=== PATIENT | female | born 1935 | race Caucasian/White ===

== ENCOUNTER 2021-02-16 18:24 | Inpatient (IN) ==
[2021-02-16] MEDS: NOREPINEPHRINE 8 MG in SODIUM CHLORIDE 0.9% 242 ML IV PRN (19:09)
[2021-02-16] MEDS ORDERED: LACTATED RINGERS 1,000 ML IV ONE (19:11)
[2021-02-16] MEDS ORDERED: ETOMIDATE 20 MG/10 ML VIAL IV STA (19:23)
[2021-02-16] MEDS ORDERED: ROCURONIUM 100 MG/10 ML VIAL IV STA (19:23)
[2021-02-16 19:33] LABS: Basophils % 0.3 % (0.0-0.8); Hematocrit 46.9 VOL% (35.7-47.0); Hemoglobin 15.1 GM/DL (12.0-16.0); Immature Granulocytes % 0.3 %; Immature Granulocytes Absolute 0.03 #; Lymphocytes % 9.6 % (21.3-54.2); Mean Corpuscular HGB Conc 32.2 GM/DL (32-36); Mean Platelet Volume 12.3 FL (9.6-12.0); Neutrophils % 81.8 % (38.7-73.9); Platelet Count 212 T/CUMM (130-400); Red Blood Count 4.99 MC/CUMM (3.8-5.5); Red Cell Distribution Width 13.4 % (9.3-17.3); White Blood Count 10.2 T/CUMM (4-12)
[2021-02-16] MEDS ORDERED: VANCOMYCIN INJ 1,000 MG in SODIUM CHLORIDE 0.9% 250 ML IV STA (19:33)
[2021-02-16] MEDS ORDERED: NOREPINEPHRINE 4 MG/4 ML VIAL IV ONE (19:39)
[2021-02-16] MEDS ORDERED: ETOMIDATE 20 MG/10 ML VIAL IV ONE (19:39)
[2021-02-16] MEDS ORDERED: ROCURONIUM 100 MG/10 ML VIAL IV ONE (19:39)
[2021-02-16 19:47] LABS: Alanine Aminotransferase 29 U/L (13-56); Albumin 2.3 G/DL (3.4-5.0); Alkaline Phosphatase 58 U/L (45-117); Aspartate Amino Transferase 69 U/L (0-37); Blood Urea Nitrogen 64 MG/DL (7-18); Calcium 7.8 MG/DL (8.5-10.1); Carbon Dioxide 15 MMOL/L (21-32); Estimated Glom Filtration Rate 19 ML/MIN; Glucose 141 MG/DL (74-106); Osmolality,Calculated 320.7 MOS/KG (273-304); Potassium 3.9 MMOL/L (3.5-5.1); Sodium 152 MMOL/L (136-145)
[2021-02-16 19:50] LABS: ABG Base Excess -12.4 MMOL/L (-2.5-2.5); ABG Oxygen Saturation 95.5 % (95-100); ABG PCO2 32.3 MM HG (35-48); ABG PH 7.247 (7.35-7.45); ABG PO2 91.8 MM HG (80-95); ABG TCO2 12.4 MMOL/L (23-27)
[2021-02-16 19:53] LABS: Band Neutrophils 26 % (0-10); Lymphocytes 15 % (20-55); Metamyelocytes 7 %; Myelocytes 1 %; Segmented Neutrophils 41 % (50-85); Total Cells Counted 100
[2021-02-16 19:54] LABS: Anisocytosis 1+; Atypical Lymphocytes Few; Burr Cells 2+; Macrocytosis 1+; Microcytosis 1+; Platelet Estimate Normal
[2021-02-16] MEDS ORDERED: ALBUTEROL 2.5 MG/3 ML NEB RESP TX PRN (21:58)
[2021-02-16] MEDS ORDERED: fentaNYL INJ 1,250 MCG in SODIUM CHLORIDE 0.9% 225 ML IV PRN (22:01)
[2021-02-16] MEDS ORDERED: MORPHINE 2 MG/1 ML SYRINGE IV PRN (22:01)
[2021-02-16] MEDS ORDERED: ONDANSETRON 4 MG/2 ML VIAL IV PRN (22:01)
[2021-02-16] MEDS ORDERED: ACETAMINOPHEN 325 MG TABLET PO PRN (22:01)
[2021-02-16] MEDS ORDERED: SODIUM BICARBONATE 50 MEQ/50 ML VIAL IV STA (22:04)
[2021-02-16] MEDS ORDERED: LACTATED RINGERS 1,000 ML IV SCH (22:30)
[2021-02-16] MEDS: PANTOPRAZOLE 40 MG VIAL IV SCH (22:34)
[2021-02-16] MEDS: MEROPENEM 500 MG in SODIUM CHLORIDE 0.9% 100 ML IV SCH (22:44)
[2021-02-16] MEDS: SODIUM BICARB INJ 100 MEQ in DEXTROSE 5% 1,000 ML IV SCH (23:08)
[2021-02-16 23:28] LABS: Bilirubin,Urine Small mg/dL (Negative); Blood, Urine Small mg/dL (Negative); Glucose,Urine (UA) Negative (Negative); Hyaline Casts,Urine 10 /LPF (0-3); Ketones,Urine Negative (Negative); Mucus,Urine Occasional /LPF (Occasional); Nitrite,Urine Negative (Negative); Protein,Urine 100 MG/DL; RBC,Urine 2 /HPF (0-4); Squamous Epithelial Cell,Urine Occasional /HPF (0-10); Urine Appearance CLOUDY (Clear); Urine Color Amber (Yellow); Urine Specific Gravity 1.018 (1.001-1.035)
[2021-02-17] MEDS: MIDAZOLAM 100 MG in SODIUM CHLORIDE 0.9% 80 ML IV PRN ×2 (00:45→20:20)
[2021-02-17] MEDS: ALBUTEROL/IPRATROPIUM 3 ML NEB RESP TX SCH ×4 (00:52→19:05)
[2021-02-17] MEDS ORDERED: NOREPINEPHRINE 4 MG/4 ML VIAL IV ONE ×7 (01:36→20:49)
[2021-02-17] MEDS: NOREPINEPHRINE 8 MG in SODIUM CHLORIDE 0.9% 242 ML IV PRN ×6 (01:40→20:55)
[2021-02-17] MEDS ORDERED: LACTATED RINGERS 1,000 ML IV ONE (02:47)
[2021-02-17 03:25] LABS: ABG Base Excess -3.9 MMOL/L (-2.5-2.5); ABG HCO3 21.2 MMOL/L (20-26); ABG Oxygen Saturation 98.1 % (95-100); ABG PCO2 30.2 MM HG (35-48); ABG PH 7.415 (7.35-7.45); ABG TCO2 16.6 MMOL/L (23-27)
[2021-02-17 04:11] LABS: Basophils # 0.1 10*3/uL (0.0-0.2); Basophils % 0.7 % (0.0-0.8); Hemoglobin 14.1 GM/DL (12.0-16.0); Immature Granulocytes % 0.5 %; Immature Granulocytes Absolute 0.04 #; Lymphocytes # 1.4 10*3/uL (1.4-4.0); Lymphocytes % 15.5 % (21.3-54.2); Mean Corpuscular HGB Conc 32.8 GM/DL (32-36); Mean Corpuscular Volume 93.1 FL (87-102); Mean Platelet Volume 12.5 FL (9.6-12.0); Monocytes % 5.9 % (1.7-12.7); Neutrophils % 77.4 % (38.7-73.9); Platelet Count 200 T/CUMM (130-400); Red Blood Count 4.62 MC/CUMM (3.8-5.5); Red Cell Distribution Width 13.5 % (9.3-17.3); White Blood Count 8.8 T/CUMM (4-12)
[2021-02-17 04:27] LABS: Albumin 1.8 G/DL (3.4-5.0); Bilirubin,Total 0.6 MG/DL (0.20-1.00); Calcium 7.2 MG/DL (8.5-10.1); Osmolality,Calculated 321.9 MOS/KG (273-304); Potassium 3.5 MMOL/L (3.5-5.1); Total Protein 4.1 G/DL (6.4-8.2)
[2021-02-17 04:33] LABS: Band Neutrophils 12 % (0-10); Lymphocytes 22 % (20-55); Myelocytes 1 %; Segmented Neutrophils 63 % (50-85); Total Cells Counted 100
[2021-02-17 04:34] LABS: Microcytosis Slight; Platelet Estimate Adequate
[2021-02-17] MEDS ORDERED: methylPREDNISolone SOD SUC 125 MG/2 ML VIAL IV ONE (05:48)
[2021-02-17] MEDS: LACTATED RINGERS 1,000 ML IV SCH ×3 (06:00→23:51)
[2021-02-17] MEDS: SERTRALINE 100 MG TABLET PO SCH (08:50)
[2021-02-17] MEDS: CYANOCOBALAMIN 500 MCG TABLET PO SCH (08:50)
[2021-02-17] MEDS: LEVOTHYROXINE 25 MCG TABLET PO SCH (08:50)
[2021-02-17] MEDS: ENOXAPARIN 30 MG/0.3 ML SYRINGE SUBCUT SCH (08:50)
[2021-02-17] MEDS: ASPIRIN EC 81 MG TABLET PO SCH (08:50)
[2021-02-17] MEDS: SODIUM BICARB INJ 100 MEQ in DEXTROSE 5% 1,000 ML IV SCH ×2 (09:56→20:20)
[2021-02-17] MEDS: MEROPENEM 500 MG in SODIUM CHLORIDE 0.9% 100 ML IV SCH (11:56)
[2021-02-17] MEDS: methylPREDNISolone SOD SUC 40 MG/1 ML VIAL IV SCH ×2 (15:52→22:20)
[2021-02-17] MEDS: NOREPINEPHRINE 16 MG in SODIUM CHLORIDE 0.9% 234 ML IV PRN (22:30)
[2021-02-17] MEDS: fentaNYL INJ 2,500 MCG in SODIUM CHLORIDE 0.9% 75 ML IV PRN (22:30)
[2021-02-17] MEDS: PANTOPRAZOLE 40 MG VIAL IV SCH (22:40)
[2021-02-17] MEDS ORDERED: MAGNESIUM SULF RIDER 2 GM/50 ML PREMIX IV ONE (23:23)
[2021-02-17 23:54] LABS: ABG Base Excess 0.1 MMOL/L (-2.5-2.5); ABG HCO3 24.4 MMOL/L (20-26); ABG PCO2 30.2 MM HG (35-48); ABG PH 7.482 (7.35-7.45); ABG PO2 76.7 MM HG (80-95); ABG TCO2 19.6 MMOL/L (23-27); Allen Test Positive; Pt O2 Delivery Device Ventilator
[2021-02-18] MEDS: MEROPENEM 500 MG in SODIUM CHLORIDE 0.9% 100 ML IV SCH ×3 (00:01→22:24)
[2021-02-18 00:21] LABS: Albumin 1.4 G/DL (3.4-5.0); Bilirubin,Total 0.6 MG/DL (0.20-1.00); Calcium 6.5 MG/DL (8.5-10.1); Osmolality,Calculated 315.4 MOS/KG (273-304); Potassium 3.6 MMOL/L (3.5-5.1); Total Protein 3.6 G/DL (6.4-8.2)
[2021-02-18] MEDS: PHENYLEPHRINE DRIP 40 MG/250 ML PREMIX IV PRN ×2 (01:35→06:23)
[2021-02-18] MEDS: ALBUTEROL/IPRATROPIUM 3 ML NEB RESP TX SCH ×4 (01:50→19:01)
[2021-02-18 04:28] LABS: Basophils # 0.1 10*3/uL (0.0-0.2); Basophils % 0.4 % (0.0-0.8); Hematocrit 36.4 VOL% (35.7-47.0); Immature Granulocytes % 0.4 %; Immature Granulocytes Absolute 0.05 #; Lymphocytes # 0.7 10*3/uL (1.4-4.0); Lymphocytes % 5.3 % (21.3-54.2); Mean Corpuscular HGB Conc 32.7 GM/DL (32-36); Mean Corpuscular Volume 91.2 FL (87-102); Mean Platelet Volume 12.2 FL (9.6-12.0); Monocytes % 3.2 % (1.7-12.7); Neutrophils % 90.7 % (38.7-73.9); Red Blood Count 3.99 MC/CUMM (3.8-5.5); Red Cell Distribution Width 13.8 % (9.3-17.3)
[2021-02-18 04:49] LABS: Albumin 1.2 G/DL (3.4-5.0); Bilirubin,Total 0.6 MG/DL (0.20-1.00); Calcium 6.5 MG/DL (8.5-10.1); Osmolality,Calculated 317.4 MOS/KG (273-304); Potassium 3.4 MMOL/L (3.5-5.1); Total Protein 3.5 G/DL (6.4-8.2)
[2021-02-18 04:50] LABS: Hemoglobin 11.9 GM/DL (12.0-16.0); Platelet Count 141 T/CUMM (130-400); White Blood Count 13.5 T/CUMM (4-12)
[2021-02-18 04:54] LABS: Band Neutrophils 4 % (0-10); Lymphocytes 6 % (20-55); Segmented Neutrophils 82 % (50-85); Total Cells Counted 100
[2021-02-18 04:55] LABS: Hypochromasia Slight
[2021-02-18 04:56] LABS: Microcytosis Slight; Platelet Estimate Adequate
[2021-02-18 05:10] LABS: Calcium 6.2 MG/DL (8.5-10.1); Osmolality,Calculated 313.6 MOS/KG (273-304); Potassium 3.4 MMOL/L (3.5-5.1)
[2021-02-18] MEDS: SODIUM BICARB INJ 100 MEQ in DEXTROSE 5% 1,000 ML IV SCH ×2 (06:29→14:12)
[2021-02-18] MEDS: LACTATED RINGERS 1,000 ML IV SCH ×3 (06:29→17:36)
[2021-02-18] MEDS: methylPREDNISolone SOD SUC 40 MG/1 ML VIAL IV SCH ×3 (06:35→22:23)
[2021-02-18] MEDS: ASPIRIN EC 81 MG TABLET PO SCH (09:35)
[2021-02-18] MEDS: ENOXAPARIN 30 MG/0.3 ML SYRINGE SUBCUT SCH (09:35)
[2021-02-18] MEDS: LEVOTHYROXINE 25 MCG TABLET PO SCH (09:35)
[2021-02-18] MEDS: CYANOCOBALAMIN 500 MCG TABLET PO SCH (09:35)
[2021-02-18] MEDS: SERTRALINE 100 MG TABLET PO SCH (09:35)
[2021-02-18] MEDS ORDERED: VANCOMYCIN INJ 1,000 MG in SODIUM CHLORIDE 0.9% 250 ML IV PRN (10:27)
[2021-02-18] MEDS ORDERED: VANCOMYCIN INJ 1,000 MG in SODIUM CHLORIDE 0.9% 250 ML IV ONE (11:00)
[2021-02-18 11:25] LABS: Allen Test Positive; Pt O2 Delivery Device Ventilator
[2021-02-18 11:26] LABS: ABG HCO3 27.1 MMOL/L (20-26); ABG Oxygen Saturation 95.9 % (95-100); ABG PCO2 36.2 MM HG (35-48); ABG PH 7.472 (7.35-7.45); ABG PO2 77.2 MM HG (80-95); ABG TCO2 23.1 MMOL/L (23-27)
[2021-02-18] MEDS ORDERED: DIGOXIN 0.5 MG/2 ML AMP IV ONE ×2 (13:40→13:44)
[2021-02-18] MEDS ORDERED: ADENOSINE 6 MG/2 ML VIAL IV ONE (13:53)
[2021-02-18] MEDS ORDERED: METOPROLOL TARTRATE 5 MG/5 ML VIAL IV ONE ×3 (13:56→16:53)
[2021-02-18] MEDS: MIDAZOLAM 100 MG in SODIUM CHLORIDE 0.9% 80 ML IV PRN (14:11)
[2021-02-18] MEDS ORDERED: POTASSIUM CHLORIDE RIDER 20 MEQ/100 ML PREMIX IV ONE (14:33)
[2021-02-18] MEDS: NOREPINEPHRINE 16 MG in SODIUM CHLORIDE 0.9% 234 ML IV PRN (15:02)
[2021-02-18] MEDS: fentaNYL INJ 2,500 MCG in SODIUM CHLORIDE 0.9% 75 ML IV PRN (21:55)
[2021-02-18] MEDS: PANTOPRAZOLE 40 MG VIAL IV SCH (22:23)
[2021-02-19] MEDS: PHENYLEPHRINE DRIP 40 MG/250 ML PREMIX IV PRN (00:11)
[2021-02-19] MEDS: METOPROLOL TARTRATE 5 MG/5 ML VIAL IV SCH ×4 (00:19→17:46)
[2021-02-19] MEDS: ALBUTEROL/IPRATROPIUM 3 ML NEB RESP TX SCH ×4 (01:03→19:37)
[2021-02-19] MEDS: NOREPINEPHRINE 16 MG in SODIUM CHLORIDE 0.9% 234 ML IV PRN (04:20)
[2021-02-19 04:40] LABS: ABG Base Excess 3.4 MMOL/L (-2.5-2.5); ABG HCO3 27.5 MMOL/L (20-26); ABG Oxygen Saturation 97.8 % (95-100); ABG PCO2 28.5 MM HG (35-48); ABG PH 7.549 (7.35-7.45); ABG PO2 93.3 MM HG (80-95); ABG TCO2 21.4 MMOL/L (23-27); Allen Test Positive; Pt O2 Delivery Device Ventilator
[2021-02-19 04:50] LABS: Basophils % 0.1 % (0.0-0.8); Hematocrit 38.4 VOL% (35.7-47.0); Hemoglobin 12.9 GM/DL (12.0-16.0); Immature Granulocytes % 0.4 %; Immature Granulocytes Absolute 0.05 #; Lymphocytes # 0.5 10*3/uL (1.4-4.0); Lymphocytes % 3.7 % (21.3-54.2); Mean Corpuscular HGB Conc 33.6 GM/DL (32-36); Mean Corpuscular Volume 90.4 FL (87-102); Monocytes % 4.4 % (1.7-12.7); Neutrophils % 91.4 % (38.7-73.9); Platelet Count 136 T/CUMM (130-400); Red Blood Count 4.25 MC/CUMM (3.8-5.5); Red Cell Distribution Width 13.7 % (9.3-17.3); White Blood Count 13.8 T/CUMM (4-12)
[2021-02-19 05:09] LABS: Albumin 1.2 G/DL (3.4-5.0); Bilirubin,Total 0.6 MG/DL (0.20-1.00); Calcium 6.6 MG/DL (8.5-10.1); Osmolality,Calculated 311.4 MOS/KG (273-304); Potassium 3.9 MMOL/L (3.5-5.1); Total Protein 3.9 G/DL (6.4-8.2)
[2021-02-19] MEDS: LACTATED RINGERS 1,000 ML IV SCH ×2 (05:26→18:29)
[2021-02-19 05:34] LABS: Band Neutrophils 3 % (0-10); Lymphocytes 4 % (20-55); Platelet Estimate Adequate; Segmented Neutrophils 90 % (50-85); Total Cells Counted 100
[2021-02-19 05:35] LABS: Hypochromasia Slight; Microcytosis Slight
[2021-02-19] MEDS: POTASSIUM CHLORIDE RIDER 20 MEQ/100 ML PREMIX IV PRN (05:48)
[2021-02-19] MEDS: methylPREDNISolone SOD SUC 40 MG/1 ML VIAL IV SCH ×3 (05:48→22:31)
[2021-02-19] MEDS: SERTRALINE 100 MG TABLET PO SCH (08:16)
[2021-02-19] MEDS: ENOXAPARIN 30 MG/0.3 ML SYRINGE SUBCUT SCH (08:16)
[2021-02-19] MEDS: LEVOTHYROXINE 25 MCG TABLET PO SCH (08:16)
[2021-02-19] MEDS: CYANOCOBALAMIN 500 MCG TABLET PO SCH (08:16)
[2021-02-19] MEDS: ASPIRIN EC 81 MG TABLET PO SCH (08:16)
[2021-02-19] MEDS: ALBUMIN 25% 25 GM/100 ML VIAL IV SCH ×2 (10:15→17:47)
[2021-02-19] MEDS: MEROPENEM 500 MG in SODIUM CHLORIDE 0.9% 100 ML IV SCH ×2 (12:33→22:31)
[2021-02-19] MEDS: PANTOPRAZOLE 40 MG VIAL IV SCH (22:31)
[2021-02-20] MEDS: METOPROLOL TARTRATE 5 MG/5 ML VIAL IV SCH ×2 (00:35→05:57)
[2021-02-20] MEDS: ALBUTEROL/IPRATROPIUM 3 ML NEB RESP TX SCH ×4 (01:03→19:35)
[2021-02-20 04:09] LABS: ABG Base Excess 1.2 MMOL/L (-2.5-2.5); ABG HCO3 23.9 MMOL/L (20-26); ABG Oxygen Saturation 97.7 % (95-100); ABG PCO2 31.6 MM HG (35-48); ABG PH 7.497 (7.35-7.45); ABG PO2 101.2 MM HG (80-95); ABG TCO2 24.9 MMOL/L (23-27); Allen Test Positive; Pt O2 Delivery Device Ventilator
[2021-02-20] MEDS: LACTATED RINGERS 1,000 ML IV SCH ×2 (05:22→15:08)
[2021-02-20 05:46] LABS: Basophils # 0.1 10*3/uL (0.0-0.2); Basophils % 0.5 % (0.0-0.8); Immature Granulocytes % 1.2 %; Immature Granulocytes Absolute 0.11 #; Lymphocytes # 0.4 10*3/uL (1.4-4.0); Mean Corpuscular HGB Conc 31.8 GM/DL (32-36); Mean Corpuscular Volume 92.7 FL (87-102); Mean Platelet Volume 12.5 FL (9.6-12.0); Monocytes % 5.9 % (1.7-12.7); Neutrophils % 88.4 % (38.7-73.9); Red Blood Count 3.56 MC/CUMM (3.8-5.5); Red Cell Distribution Width 13.7 % (9.3-17.3)
[2021-02-20] MEDS: methylPREDNISolone SOD SUC 40 MG/1 ML VIAL IV SCH ×3 (05:57→22:13)
[2021-02-20 06:15] LABS: Hemoglobin 10.5 GM/DL (12.0-16.0); White Blood Count 9.4 T/CUMM (4-12)
[2021-02-20 06:16] LABS: Platelet Count 89 T/CUMM (130-400)
[2021-02-20 06:21] LABS: Band Neutrophils 1 % (0-10); Lymphocytes 7 % (20-55); Platelet Estimate Decreased; Segmented Neutrophils 85 % (50-85); Total Cells Counted 100
[2021-02-20 06:44] LABS: Calcium 6.7 MG/DL (8.5-10.1); Osmolality,Calculated 306.7 MOS/KG (273-304); Potassium 3.8 MMOL/L (3.5-5.1)
[2021-02-20] MEDS: PHENYLEPHRINE DRIP 40 MG/250 ML PREMIX IV PRN (08:29)
[2021-02-20] MEDS ORDERED: METOPROLOL SUCCINATE XL 25 MG TABLET PO SCH (09:00)
[2021-02-20] MEDS: ENOXAPARIN 30 MG/0.3 ML SYRINGE SUBCUT SCH (09:26)
[2021-02-20] MEDS: CYANOCOBALAMIN 500 MCG TABLET PO SCH (09:26)
[2021-02-20] MEDS: LEVOTHYROXINE 25 MCG TABLET PO SCH (09:26)
[2021-02-20] MEDS: ASPIRIN CHEW 81 MG TABLET PO SCH (09:26)
[2021-02-20] MEDS: SERTRALINE 100 MG TABLET PO SCH (09:30)
[2021-02-20] MEDS: POTASSIUM CHLORIDE RIDER 20 MEQ/100 ML PREMIX IV PRN (09:30)
[2021-02-20] MEDS: METOCLOPRAMIDE 10 MG/2 ML VIAL IV SCH ×3 (10:59→22:13)
[2021-02-20] MEDS: MEROPENEM 500 MG in SODIUM CHLORIDE 0.9% 100 ML IV SCH ×2 (12:14→22:13)
[2021-02-20] MEDS: fentaNYL INJ 2,500 MCG in SODIUM CHLORIDE 0.9% 75 ML IV PRN (20:18)
[2021-02-20] MEDS: PANTOPRAZOLE 40 MG VIAL IV SCH (22:13)
[2021-02-21] MEDS: LACTATED RINGERS 1,000 ML IV SCH ×2 (01:08→23:00)
[2021-02-21] MEDS: ALBUTEROL/IPRATROPIUM 3 ML NEB RESP TX SCH ×4 (02:44→20:34)
[2021-02-21 04:24] LABS: Basophils % 0.3 % (0.0-0.8); Hematocrit 31.3 VOL% (35.7-47.0); Hemoglobin 9.9 GM/DL (12.0-16.0); Immature Granulocytes % 0.5 %; Immature Granulocytes Absolute 0.05 #; Lymphocytes # 0.4 10*3/uL (1.4-4.0); Lymphocytes % 3.8 % (21.3-54.2); Mean Corpuscular HGB Conc 31.6 GM/DL (32-36); Mean Corpuscular Volume 94.6 FL (87-102); Mean Platelet Volume 12.8 FL (9.6-12.0); Monocytes % 5.4 % (1.7-12.7); Red Blood Count 3.31 MC/CUMM (3.8-5.5); White Blood Count 10.5 T/CUMM (4-12)
[2021-02-21 04:28] LABS: Platelet Count 83 T/CUMM (130-400)
[2021-02-21 04:42] LABS: Calcium 6.3 MG/DL (8.5-10.1); Osmolality,Calculated 307.8 MOS/KG (273-304); Potassium 3.7 MMOL/L (3.5-5.1)
[2021-02-21 04:43] LABS: Band Neutrophils 7 % (0-10); Lymphocytes 4 % (20-55); Segmented Neutrophils 83 % (50-85); Total Cells Counted 100
[2021-02-21 04:44] LABS: Hypochromasia 1+; Microcytosis Slight; Platelet Estimate Decreased
[2021-02-21] MEDS ORDERED: MAGNESIUM SULF RIDER 4 GM/100 ML PREMIX IV PRN (04:47)
[2021-02-21] MEDS ORDERED: MAGNESIUM SULF RIDER 2 GM/50 ML PREMIX IV PRN (04:47)
[2021-02-21] MEDS: METOCLOPRAMIDE 10 MG/2 ML VIAL IV SCH ×4 (05:12→22:28)
[2021-02-21 05:14] LABS: ABG Base Excess -0.6 MMOL/L (-2.5-2.5); ABG HCO3 23.9 MMOL/L (20-26); ABG Oxygen Saturation 97.4 % (95-100); ABG PCO2 37.8 MM HG (35-48); ABG PH 7.407 (7.35-7.45); ABG PO2 95.5 MM HG (80-95); ABG TCO2 21.5 MMOL/L (23-27)
[2021-02-21] MEDS: methylPREDNISolone SOD SUC 40 MG/1 ML VIAL IV SCH ×3 (05:14→22:28)
[2021-02-21] MEDS: POTASSIUM CHLORIDE RIDER 20 MEQ/100 ML PREMIX IV PRN (07:45)
[2021-02-21] MEDS: METOPROLOL TARTRATE 25 MG TABLET PO SCH (08:17)
[2021-02-21] MEDS: ENOXAPARIN 30 MG/0.3 ML SYRINGE SUBCUT SCH (08:46)
[2021-02-21] MEDS: LEVOTHYROXINE 25 MCG TABLET PO SCH (08:46)
[2021-02-21] MEDS: ASPIRIN CHEW 81 MG TABLET PO SCH (08:46)
[2021-02-21] MEDS: SERTRALINE 100 MG TABLET PO SCH (08:46)
[2021-02-21] MEDS: CYANOCOBALAMIN 500 MCG TABLET PO SCH (08:46)
[2021-02-21] MEDS ORDERED: FUROSEMIDE 40 MG/4 ML VIAL IV ONE (10:37)
[2021-02-21] MEDS: MEROPENEM 500 MG in SODIUM CHLORIDE 0.9% 100 ML IV SCH ×2 (10:56→22:28)
[2021-02-21] MEDS: PHENYLEPHRINE DRIP 40 MG/250 ML PREMIX IV PRN (11:54)
[2021-02-21] MEDS: PANTOPRAZOLE 40 MG VIAL IV SCH (22:28)
[2021-02-22] MEDS: PHENYLEPHRINE DRIP 40 MG/250 ML PREMIX IV PRN ×3 (02:09→20:00)
[2021-02-22] MEDS: ALBUTEROL/IPRATROPIUM 3 ML NEB RESP TX SCH ×4 (02:12→19:57)
[2021-02-22 04:09] LABS: Basophils # 0.1 10*3/uL (0.0-0.2); Basophils % 0.5 % (0.0-0.8); Hematocrit 32.8 VOL% (35.7-47.0); Hemoglobin 10.6 GM/DL (12.0-16.0); Immature Granulocytes % 1.3 %; Lymphocytes # 0.4 10*3/uL (1.4-4.0); Lymphocytes % 2.8 % (21.3-54.2); Mean Corpuscular HGB Conc 32.3 GM/DL (32-36); Mean Corpuscular Volume 92.4 FL (87-102); Mean Platelet Volume 13.1 FL (9.6-12.0); Monocytes % 3.8 % (1.7-12.7); Neutrophils % 91.6 % (38.7-73.9); Platelet Count 83 T/CUMM (130-400); Red Blood Count 3.55 MC/CUMM (3.8-5.5); White Blood Count 14.9 T/CUMM (4-12)
[2021-02-22 04:27] LABS: Calcium 6.2 MG/DL (8.5-10.1); Osmolality,Calculated 310.7 MOS/KG (273-304); Potassium 4.1 MMOL/L (3.5-5.1)
[2021-02-22 04:30] LABS: Albumin 1.5 G/DL (3.4-5.0); Bilirubin,Direct 0.18 MG/DL (0.0-0.20); Bilirubin,Indirect 0.7 MG/DL (0.0-1.0); Bilirubin,Total 0.9 MG/DL (0.20-1.00)
[2021-02-22 04:32] LABS: Band Neutrophils 2 % (0-10); Hypochromasia Slight; Lymphocytes 3 % (20-55); Microcytosis Slight; Ovalocytes Slight; Segmented Neutrophils 88 % (50-85); Total Cells Counted 100
[2021-02-22 04:33] LABS: Platelet Estimate Decreased
[2021-02-22 04:35] LABS: ABG Base Excess -1.9 MMOL/L (-2.5-2.5); ABG HCO3 22.8 MMOL/L (20-26); ABG Oxygen Saturation 95.1 % (95-100); ABG PCO2 35.5 MM HG (35-48); ABG PH 7.406 (7.35-7.45); ABG PO2 73.6 MM HG (80-95); ABG TCO2 20.1 MMOL/L (23-27)
[2021-02-22] MEDS: METOCLOPRAMIDE 10 MG/2 ML VIAL IV SCH ×4 (04:44→23:30)
[2021-02-22] MEDS: methylPREDNISolone SOD SUC 40 MG/1 ML VIAL IV SCH (06:13)
[2021-02-22] MEDS: ASPIRIN CHEW 81 MG TABLET PO SCH (09:01)
[2021-02-22] MEDS: ENOXAPARIN 30 MG/0.3 ML SYRINGE SUBCUT SCH (09:01)
[2021-02-22] MEDS: CYANOCOBALAMIN 500 MCG TABLET PO SCH (09:02)
[2021-02-22] MEDS: METOPROLOL TARTRATE 25 MG TABLET PO SCH (09:02)
[2021-02-22] MEDS: LEVOTHYROXINE 25 MCG TABLET PO SCH (09:02)
[2021-02-22] MEDS: SERTRALINE 100 MG TABLET PO SCH (09:02)
[2021-02-22] MEDS ORDERED: FUROSEMIDE 40 MG/4 ML VIAL IV ONE (09:33)
[2021-02-22] MEDS: LACTATED RINGERS 1,000 ML IV SCH ×2 (11:13→18:26)
[2021-02-22] MEDS: MEROPENEM 500 MG in SODIUM CHLORIDE 0.9% 100 ML IV SCH (12:25)
[2021-02-22] MEDS: PANTOPRAZOLE 40 MG VIAL IV SCH (23:30)
[2021-02-23] MEDS: VANCOMYCIN 50 MG/ML 60 ML/BOTTLE PO SCH ×4 (00:12→18:21)
[2021-02-23] MEDS: ALBUTEROL/IPRATROPIUM 3 ML NEB RESP TX SCH ×4 (01:22→19:28)
[2021-02-23 04:24] LABS: ABG Base Excess -1.3 MMOL/L (-2.5-2.5); ABG HCO3 23.3 MMOL/L (20-26); ABG Oxygen Saturation 97.4 % (95-100); ABG PCO2 31.4 MM HG (35-48); ABG PH 7.452 (7.35-7.45); ABG PO2 91.9 MM HG (80-95); ABG TCO2 19.8 MMOL/L (23-27); Allen Test Positive; Pt O2 Delivery Device Ventilator
[2021-02-23 04:40] LABS: Basophils % 0.2 % (0.0-0.8); Eosinophils % 0.1 % (0.00-10.9); Hematocrit 30.3 VOL% (35.7-47.0); Hemoglobin 9.6 GM/DL (12.0-16.0); Immature Granulocytes % 2.7 %; Immature Granulocytes Absolute 0.45 #; Lymphocytes # 0.9 10*3/uL (1.4-4.0); Lymphocytes % 5.4 % (21.3-54.2); Mean Corpuscular HGB Conc 31.7 GM/DL (32-36); Mean Corpuscular Volume 92.9 FL (87-102); Mean Platelet Volume 12.4 FL (9.6-12.0); Monocytes % 5.1 % (1.7-12.7); Neutrophils % 86.5 % (38.7-73.9); Platelet Count 108 T/CUMM (130-400); Red Blood Count 3.26 MC/CUMM (3.8-5.5); Red Cell Distribution Width 14.2 % (9.3-17.3)
[2021-02-23 05:13] LABS: Calcium 6.5 MG/DL (8.5-10.1); Osmolality,Calculated 311.6 MOS/KG (273-304); Potassium 3.8 MMOL/L (3.5-5.1)
[2021-02-23] MEDS: METOCLOPRAMIDE 10 MG/2 ML VIAL IV SCH ×4 (05:23→22:35)
[2021-02-23] MEDS: LACTATED RINGERS 1,000 ML IV SCH ×3 (05:23→23:10)
[2021-02-23] MEDS: PHENYLEPHRINE DRIP 40 MG/250 ML PREMIX IV PRN ×2 (05:26→18:07)
[2021-02-23 07:33] LABS: Lymphocytes 4 % (20-55); Platelet Estimate Normal; Segmented Neutrophils 92 % (50-85); Total Cells Counted 100
[2021-02-23] MEDS: ASPIRIN CHEW 81 MG TABLET PO SCH (08:28)
[2021-02-23] MEDS: LEVOTHYROXINE 25 MCG TABLET PO SCH (08:28)
[2021-02-23] MEDS: SERTRALINE 100 MG TABLET PO SCH (08:28)
[2021-02-23] MEDS: ENOXAPARIN 30 MG/0.3 ML SYRINGE SUBCUT SCH (08:28)
[2021-02-23] MEDS: METOPROLOL TARTRATE 25 MG TABLET PO SCH (08:28)
[2021-02-23] MEDS: CYANOCOBALAMIN 500 MCG TABLET PO SCH (08:28)
[2021-02-23] MEDS: cefTRIAXone 1,000 MG in SODIUM CHLORIDE 0.9% 100 ML IV SCH (09:36)
[2021-02-23 09:43] LABS: ABG Base Excess -1.8 MMOL/L (-2.5-2.5); ABG HCO3 22.9 MMOL/L (20-26); ABG Oxygen Saturation 93.6 % (95-100); ABG PCO2 32.1 MM HG (35-48); ABG PH 7.439 (7.35-7.45); ABG PO2 67.5 MM HG (80-95)
[2021-02-23] MEDS ORDERED: FUROSEMIDE 40 MG/4 ML VIAL IV ONE (12:00)
[2021-02-23] MEDS: PANTOPRAZOLE 40 MG VIAL IV SCH (22:30)
[2021-02-24] MEDS: ALBUTEROL/IPRATROPIUM 3 ML NEB RESP TX SCH ×3 (00:02→12:35)
[2021-02-24] MEDS: VANCOMYCIN 50 MG/ML 60 ML/BOTTLE PO SCH ×5 (00:52→23:00)
[2021-02-24 04:20] LABS: Basophils % 0.2 % (0.0-0.8); Eosinophils % 0.2 % (0.00-10.9); Hematocrit 26.5 VOL% (35.7-47.0); Hemoglobin 8.4 GM/DL (12.0-16.0); Immature Granulocytes Absolute 0.23 #; Lymphocytes # 0.5 10*3/uL (1.4-4.0); Lymphocytes % 4.6 % (21.3-54.2); Mean Corpuscular HGB Conc 31.7 GM/DL (32-36); Monocytes % 2.8 % (1.7-12.7); Neutrophils % 90.2 % (38.7-73.9); Red Blood Count 2.82 MC/CUMM (3.8-5.5); Red Cell Distribution Width 14.1 % (9.3-17.3)
[2021-02-24 04:42] LABS: Calcium 6.6 MG/DL (8.5-10.1); Osmolality,Calculated 313.7 MOS/KG (273-304)
[2021-02-24 04:50] LABS: Platelet Count 81 T/CUMM (130-400); White Blood Count 11.3 T/CUMM (4-12)
[2021-02-24] MEDS: METOCLOPRAMIDE 10 MG/2 ML VIAL IV SCH ×4 (05:10→21:49)
[2021-02-24 06:22] LABS: Band Neutrophils 9 % (0-10); Lymphocytes 7 % (20-55); Platelet Estimate Decreased; Segmented Neutrophils 82 % (50-85); Total Cells Counted 100
[2021-02-24 06:23] LABS: Anisocytosis 1+; Macrocytosis Slight
[2021-02-24] MEDS: PHENYLEPHRINE DRIP 40 MG/250 ML PREMIX IV PRN (08:17)
[2021-02-24] MEDS ORDERED: FUROSEMIDE 40 MG/4 ML VIAL IV ONE (08:21)
[2021-02-24] MEDS: ASPIRIN CHEW 81 MG TABLET PO SCH (08:40)
[2021-02-24] MEDS: CYANOCOBALAMIN 500 MCG TABLET PO SCH (08:40)
[2021-02-24] MEDS: SERTRALINE 100 MG TABLET PO SCH (08:40)
[2021-02-24] MEDS: LEVOTHYROXINE 25 MCG TABLET PO SCH (08:40)
[2021-02-24] MEDS: METOPROLOL TARTRATE 25 MG TABLET PO SCH (08:40)
[2021-02-24] MEDS: cefTRIAXone 1,000 MG in SODIUM CHLORIDE 0.9% 100 ML IV SCH (08:41)
[2021-02-24] MEDS: ENOXAPARIN 30 MG/0.3 ML SYRINGE SUBCUT SCH (08:41)
[2021-02-24] MEDS: methylPREDNISolone SOD SUC 40 MG/1 ML VIAL IV SCH ×2 (09:29→21:49)
[2021-02-24] MEDS: LACTATED RINGERS 1,000 ML IV SCH (09:31)
[2021-02-24 09:35] LABS: ABG HCO3 21.9 MMOL/L (20-26); ABG Oxygen Saturation 96.3 % (95-100); ABG PCO2 35.5 MM HG (35-48); ABG PO2 85.6 MM HG (80-95); ABG TCO2 19.9 MMOL/L (23-27)
[2021-02-24] MEDS: POTASSIUM CHLORIDE RIDER 20 MEQ/100 ML PREMIX IV PRN (12:36)
[2021-02-24] MEDS ORDERED: POTASSIUM CHLORIDE 20 MEQ TABLET PO ONE ×2 (18:28→21:00)
[2021-02-24] MEDS ORDERED: CALCIUM GLUCONATE 1,000 MG in SODIUM CHLORIDE 0.9% 100 ML IV ONE (21:00)
[2021-02-24] MEDS: CALCIUM CARBONATE CHEW 500 MG TABLET PO SCH (21:48)
[2021-02-24] MEDS: PANTOPRAZOLE 40 MG VIAL IV SCH (21:49)
[2021-02-25] MEDS: ALBUTEROL/IPRATROPIUM 3 ML NEB RESP TX SCH ×2 (00:17→07:43)
[2021-02-25] MEDS: LACTATED RINGERS 1,000 ML IV SCH (01:24)
[2021-02-25] MEDS: METOCLOPRAMIDE 10 MG/2 ML VIAL IV SCH (03:33)
[2021-02-25] MEDS ORDERED: PIPERACILLIN/TAZOBACTAM 3,375 MG in SODIUM CHLORIDE 0.9% 100 ML IV SCH (04:00)
[2021-02-25] MEDS: VANCOMYCIN 50 MG/ML 60 ML/BOTTLE PO SCH (05:03)
[2021-02-25 05:17] LABS: Basophils % 0.1 % (0.0-0.8); Hematocrit 25.4 VOL% (35.7-47.0); Hemoglobin 8.3 GM/DL (12.0-16.0); Immature Granulocytes % 1.4 %; Immature Granulocytes Absolute 0.15 #; Lymphocytes # 0.2 10*3/uL (1.4-4.0); Lymphocytes % 1.7 % (21.3-54.2); Mean Corpuscular HGB Conc 32.7 GM/DL (32-36); Mean Platelet Volume 12.9 FL (9.6-12.0); Monocytes % 2.2 % (1.7-12.7); Neutrophils % 94.6 % (38.7-73.9); Platelet Count 104 T/CUMM (130-400); Red Blood Count 2.76 MC/CUMM (3.8-5.5); White Blood Count 11.1 T/CUMM (4-12)
[2021-02-25 05:44] LABS: Calcium 7.5 MG/DL (8.5-10.1); Osmolality,Calculated 317.7 MOS/KG (273-304); Potassium 3.7 MMOL/L (3.5-5.1)
[2021-02-25 05:47] LABS: Hypochromasia 1+; Lymphocytes 1 % (20-55); Microcytosis Slight; Platelet Estimate Decreased; Segmented Neutrophils 96 % (50-85); Total Cells Counted 100
[2021-02-25] MEDS: POTASSIUM CHLORIDE RIDER 20 MEQ/100 ML PREMIX IV PRN (05:52)
[2021-02-25] MEDS: methylPREDNISolone SOD SUC 40 MG/1 ML VIAL IV SCH (10:01)
[2021-02-25] MEDS: METOPROLOL TARTRATE 25 MG TABLET PO SCH (10:02)
[2021-02-25] MEDS: ASPIRIN CHEW 81 MG TABLET PO SCH (10:02)
[2021-02-25] MEDS: LEVOTHYROXINE 25 MCG TABLET PO SCH (10:08)
[2021-02-25] MEDS: CALCIUM CARBONATE CHEW 500 MG TABLET PO SCH (10:09)
[2021-02-25] MEDS: CYANOCOBALAMIN 500 MCG TABLET PO SCH (10:10)
[2021-02-25] MEDS: SERTRALINE 100 MG TABLET PO SCH (10:10)
[2021-02-25] MEDS: MORPHINE 2 MG/1 ML SYRINGE IV PRN ×2 (10:15→14:59)
[2021-02-25 11:52] VITALS: BP 33/16
== END 2021-02-25 20:27 | disposition expired | DRG 870 ==
LOC: N.ED 19:07 → N.EDINP 22:00 → SUATTDRO 22:00 → N.CVR 02-18 12:20 → N.5E 02-24 18:16
PROVIDERS: ADMIT Internal Medicine; ATTEND Internal Medicine